=== PATIENT | female | born 1945 | race Caucasian/White ===

== ENCOUNTER 2019-03-12 12:55 | Emergency (ER) | payer MEDICARE, OTHER ==
[~2019-03-12] VITALS: Ht 157.5 cm; Wt 61.7 kg
[2019-03-12] MEDS ORDERED: ZESTRIL20 MG PO (13:12)
[2019-03-12] MEDS ORDERED: COREG6.25 MG PO (13:12)
== END 2019-03-12 13:22 | disposition home or self-care (01) ==
LOC: ED 12:55
DX: S60.312A Abrasion of left thumb, initial encounter (principal); W55.03XA Scratched by cat, initial encounter